=== PATIENT | female | born 1990 | race Caucasian/White ===

== ENCOUNTER 2018-03-28 11:09 | Emergency (ER) | payer SELFPAY ==
--- NOTE | 2018-03-28 11:17 | PDOC ---
History of Present Illness - General Stated Complaint: NAUSEA / VOMITING Time Seen by Provider: 03/28/18 11:17 - History of Present Illness Initial Comments: 03/28/18 11:17 Ms. Hahn is a 27 yo female w/ pmh of cannabinoid hyperemesis who presents for evaluation of 2 day history of nausea and vomiting. Patient reports symptoms started Thursday after eating dinner and additionally had 1 episode of diarrhea ( now resolved). Patient reports she also smoked marijuana after dinner on Thursday and that symptoms started following this and have persisted until this morning. Patient describes vomit as consisting of the food she has eaten. The patient denies chest pain, shortness of breath, headache and dizziness. Denies fever, chills, and constipation. Denies dysuria, frequency, urgency and hematuria. Past History - Past Medical History Allergies/Adverse Reactions: Allergies Allergy/AdvReac Type Severity Reaction Status Date / Time No Known Allergies Allergy Verified 03/28/18 11:21 Home Medications: Ambulatory Orders Ondansetron HCl [Zofran] 4 mg PO TID PRN #12 tablet 03/28/18 Review of Systems - Review of Systems Comments:: 03/28/18 11:17 GENERAL/CONSTITUTIONAL: No fever or chills. No weakness. HEAD, EYES, EARS, NOSE AND THROAT: No change in vision. No ear pain or discharge. No sore throat. CARDIOVASCULAR: No chest pain or shortness of breath RESPIRATORY: No cough, wheezing, or hemoptysis. GASTROINTESTINAL: +N/V as described w/ single episode of loose stool. No constipation. GENITOURINARY: No dysuria, frequency, or change in urination. MUSCULOSKELETAL: No joint or muscle swelling or pain. No neck or back pain. SKIN: No rash NEUROLOGIC: No headache, vertigo, loss of consciousness, or change in strength/ sensation. ENDOCRINE: No increased thirst. No abnormal weight change HEMATOLOGIC/LYMPHATIC: No anemia, easy bleeding, or history of blood clots. ALLERGIC/IMMUNOLOGIC: No hives or skin allergy. *Physical Exam - Physical Exam Comments: 03/28/18 11:17 GENERAL: Awake, alert, and fully oriented, in no acute distress HEAD: No signs of trauma, normocephalic, atraumatic EYES: PERRLA, EOMI, sclera anicteric, conjunctiva clear ENT: Auricles normal inspection, hearing grossly normal, nares patent, oropharynx clear without exudates. Moist mucosa NECK: Normal ROM, supple, no lymphadenopathy, JVD, or masses LUNGS: No distress, speaks full sentences, clear to auscultation bilaterally HEART: Regular rate and rhythm, normal S1 and S2, no murmurs, rubs or gallops, peripheral pulses normal and equal bilaterally. ABDOMEN: +Abdomen diffusely tender. Soft, normoactive bowel sounds. No guarding , no rebound. No masses EXTREMITIES: Normal inspection, Normal range of motion, no edema. No clubbing or cyanosis. NEUROLOGICAL: Cranial nerves II through XII grossly intact. Normal speech, normal gait, no focal sensorimotor deficits SKIN: Warm, Dry, normal turgor, no rashes or lesions noted. ED Treatment Course - LABORATORY CBC & Chemistry Diagram: 03/28/18 12:00 03/28/18 12:00 Medical Decision Making - Medical Decision Making 03/28/18 11:45 Ms. Hahn is a 27 yo female w/ pmh as described who presents for evaluation of symptoms concerning for gastritis vs. cannabinoid hyperemesis. Labs sent for evaluation w/ zofran given for symptomatic relief. 03/28/18 18:11 CT abdomen/pelvis w/ IV contrast and repeat zofran given for continued pain/ nausea. Patient CT negative for acute process. Patient labs grossly wnl as below. No concerning findings at this time. Suspect etiology of symptoms cannabinoid hyperemesis. Discharging patient to home for outpatient f/u. Will send Zofran Rx for outpatient nausea relief. *DC/Admit/Observation/Transfer Diagnosis at time of Disposition: Cannabinoid hyperemesis syndrome - Discharge Dispostion Disposition: HOME - [place] [facility] [place] [facility] [[place] Group] - Patient Instructions Printed Discharge Instructions: DI for Vomiting -- Adult Additional Instructions: You were evaluated today in the emergency room for your nausea and vomiting. We evaluated you with labs as well as CT scan of your abdomen/pelvis with no emergent findings at this time. We have also sent a prescription to your pharmacy. Take all medications as proscribed. Follow-up with primary care provider later this week for further evaluation. We have also provided primary care provider information you may use to establish care if you do not have any. Return to ER if any fevers, chills, increase in pain, or other concerning symptoms. - Post Discharge Activity
[2018-03-28 11:23] VITALS: BMI 25.0
[2018-03-28 11:30] VITALS: PULSE 91
[2018-03-28] MEDS ORDERED: SODIUM CHLORIDE 1,000 ML IV STA ×2 (11:30→13:00)
[2018-03-28] MEDS ORDERED: ONDANSETRON 4 MG/2 ML VIAL IVPUSH ONE ×2 (11:30→16:04)
--- NOTE | 2018-03-28 11:32 | PDOC ---
Attending Attestation - Resident Resident Name: Nain Ramírez - ED Attending Attestation I have performed the following: I have examined & evaluated the patient, The case was reviewed & discussed with the resident, I agree w/resident's findings & plan, Exceptions are as noted - HPI HPI: 03/28/18 12:05 27y F hx of cyclical vomiting syndrome presents with with complaint of vomiting. pt states symptoms started on thursday after eating some food (other people had the same food but are fine), had multiple epsiodes of yellow/green vomiting (nbnb) and had 2 episodes of watery brownish stool (last onew as thursday ). Vomiting has persisted associated with mild intermittent epigastric pain - the patient denies any associated fever, chills, blood in the stool or vomit, chest pain, shortness of breath, leg swelling. Last menstrual period was one week ago. No recent travel or known sick contacts - Physicial Exam PE: 03/28/18 12:08 GENERAL: The patient is awake, alert, and fully oriented, Nontoxic - in no acute distress. HEAD: Normocephalic, atraumatic. EYES: extraocular movements intact, sclera anicteric, conjunctiva clear. ENT: Normal voice, moderately dry mucous membranes. NECK: Normal range of motion, supple LUNGS: Breath sounds equal, clear to auscultation bilaterally. No wheezes, no rhonchi, no rales. HEART: Regular rate and rhythm, normal S1 and S2 without murmur, rub or gallop. ABDOMEN: Soft, mild epigastric tenderness, No guarding, no rebound. . No CVA tenderness EXTREMITIES: Normal range of motion, no edema. NEUROLOGICAL: No facial assymetry, Normal speech, movinga ll 4 extremities spontaenously and symmetrically PSYCH: Normal mood, normal affect. SKIN: Warm, Dry, normal turgor, - Medical Decision Making 03/28/18 12:09 Suspect gastroenteritis Will obtain work to rule out metabolic derangements Zofran fluid for symptomatic relief Will reassess
[2018-03-28] MEDS ORDERED: ONDANSETRON 4 MG/2 ML VIAL ONE ×2 (11:39→16:11)
[2018-03-28 12:12] LABS: BASO % 0.2 % (0-2.0); EOS % 0.1 % (0-4.5); HEMATOCRIT 36.3 % (32.4-45.2); HEMOGLOBIN 11.9 GM/dL (10.7-15.3); MCH 24.9 pg (25.7-33.7); MCHC 32.8 g/dl (32.0-36.0); MEAN CELL VOLUME 75.8 fl (80-96); MEAN PLT VOLUME 10.9 fl (7.5-11.1); MONO % 9.1 % (3.8-10.2); NEUT % 82.6 % (42.8-82.8); PLATELET COUNT 225 K/MM3 (134-434); RBC 4.79 M/mm3 (3.60-5.2); RDW 17.9 % (11.6-15.6)
[2018-03-28 12:33] LABS: ALBUMIN 4.4 g/dl (3.4-5.0); ALK PHOS 57 U/L (45-117); ANION GAP 12 MMOL/L (8-16); BILIRUBIN,TOTAL 0.5 mg/dL (0.2-1); BLOOD UREA NITROGEN 14 mg/dL (7-18); CALCIUM 9.4 mg/dL (8.5-10.1); CHLORIDE 104 mmol/L (98-107); CO2 27 mmol/L (21-32); CREATININE 0.9 mg/dL (0.55-1.3); GLUCOSE,RANDOM 98 mg/dL (74-106); POTASSIUM 3.6 mmol/L (3.5-5.1); SGOT/AST 15 U/L (15-37); SGPT/ALT 19 U/L (13-61); SODIUM 142 mmol/L (136-145)
[2018-03-28] MEDS ORDERED: FAMOTIDINE 20 MG/50 ML IVPB 20 MG/50 ML MG IVPB ONE ×2 (13:00→13:08)
[2018-03-28] MEDS ORDERED: MAG HYDROX/AL HYDROX/SIMETH 30 ML UNIT-DOSE CUP PO ONE (13:00)
[2018-03-28] MEDS ORDERED: MAG HYDROX/AL HYDROX/SIMETH 30 ML UNIT-DOSE CUP ONE (13:08)
[2018-03-28 15:24] LABS: URINE APPEARANCE CLOUDY; URINE BILIRUBIN NEGATIVE (<2.0 mg/dL); URINE GLUCOSE (UA) NEGATIVE (NEGATIVE); URINE KETONE 2+ (NEGATIVE); URINE LEUK ESTERASE 1+ (NEGATIVE); URINE NITRITE NEGATIVE (NEGATIVE); URINE PROTEIN 2+ (NEGATIVE)
[2018-03-28 15:42] LABS: PLATELET ESTIMATE NORMAL
[2018-03-28 15:49] LABS: URINE COLOR YELLOW
[2018-03-28 16:07] LABS: EPI CELLS FEW /HPF (FEW); URINE MUCUS MANY
[2018-03-28 17:54] VITALS: BP 117/87; TEMP 97.4
== END 2018-03-28 18:25 | disposition home or self-care (01) ==
LOC: JER 11:09
PROC: 3E033GC Introduction of Other Therapeutic Substance into Peripheral Vein, Percutaneous Approach (ICD-10-PCS; principal; 2018-03-28)
PROC: 3E0337Z Introduction of Electrolytic and Water Balance Substance into Peripheral Vein, Percutaneous Approach (ICD-10-PCS; 2018-03-28)
DX: F12.99 Cannabis use, unspecified with unspecified cannabis-induced disorder (principal)
CPT/HCPCS: 36415; 74177-TC; 80053; 81003; 81015; 84703; 85025; 99282-25; J7030